=== PATIENT | female | born 1955 | race Caucasian/White ===

== ENCOUNTER → 2016-10-25 | Outpatient (CLI) | payer OTHER | END | disposition home or self-care (01) | LOC: CFH 09:21 | PROVIDERS: ATTEND Family Medicine | DX: Z12.31 Encounter for screening mammogram for malignant neoplasm of breast (principal) | CPT/HCPCS: G0202 ==

== ENCOUNTER → 2017-10-27 | Outpatient (CLI) | payer BC | END | disposition home or self-care (01) | LOC: CFH 08:09 | PROVIDERS: ATTEND Nurse Practitioner Family | DX: Z12.31 Encounter for screening mammogram for malignant neoplasm of breast (principal) | CPT/HCPCS: 77067 ==

== ENCOUNTER → 2019-06-22 | Outpatient (CLI) | payer MEDICARE ==
[~2019-06-22] MED LIST: AZEL137S4 NAS; BIFI4CAP PO; CBD Oil PO; CETI-158 PO; COLE1TAB2 PO; IPRA15SP NS; MONT10TA6 PO; MULT1TAB60 PO; SULI200T2 PO; lansoprazole PO; tylenol PO
[2019-06-22 14:32] LABS: ANION GAP 4 mmol/L (5-15); CHLORIDE 111 mmol/L (98-107); INTERNATIONAL NORMALIZED RATIO 0.94 (0.93-1.1); PROTHROMBIN TIME 9.9 Seconds (9.6-11.5)
[2019-06-22 14:34] LABS: CREATININE 0.71 mg/dL (0.55-1.02)
[2019-06-22 15:01] LABS: BASOPHILS # (AUTO) 0.02 x10^3/uL (0-0.1); BASOPHILS % (AUTO) 0 % (0-1); EOSINOPHILS # (AUTO) 0.13 x10^3/uL (0-0.4); EOSINOPHILS % (AUTO) 2 % (1-7); LYMPHOCYTES # (AUTO) 2.08 x10^3/uL (1-3.4); LYMPHOCYTES % (AUTO) 30 % (22-44); MD NO; MEAN CORPUSCULAR HEMOGLOBIN 33.4 pg (27.0-34.8); MEAN CORPUSCULAR HGB CONC 33.3 g/dL (32.4-35.8); MEAN CORPUSCULAR VOLUME 100.2 fL (80-100); MEAN PLATELET VOLUME 8.2 fL (7.4-10.4); MONOCYTES # (AUTO) 0.51 x10^3/uL (0.2-0.8); MONOCYTES % (AUTO) 7 % (2-9); NEUTROPHILS % (AUTO) 61 % (42-75); PLATELET COUNT 352 x10^3/uL (130-400); RED BLOOD COUNT 4.31 x10^6/uL (3.82-5.3); RED CELL DISTRIBUTION WIDTH 13.4 % (9.6-15.2)
[2019-06-22 15:01] LABS: MICROSCOPIC NOT IND
[2019-06-22 15:59] LABS: CULTURE INDICATED? NO
== END | disposition home or self-care (01) ==
LOC: STAR 12:58
PROVIDERS: ATTEND Neurological Surgery
DX: Z01.818 Encounter for other preprocedural examination (principal); M48.07 Spinal stenosis, lumbosacral region; M51.37 Other intervertebral disc degeneration, lumbosacral region; M41.86 Other forms of scoliosis, lumbar region; Z88.2 Allergy status to sulfonamides
CPT/HCPCS: 36415; 71046; 72131; 80048; 81003; 85025; 85610; 85730; 93005

== ENCOUNTER 2019-07-03 11:25 | Inpatient (IN) | payer MEDICARE ==
[~2019-07-03] VITALS: Ht 170.2 cm; Wt 74.3 kg
[~2019-07-03 11:25] MED LIST changes: +BACITRACIN 50,000 UNIT ONE; +BUPIVACAINE/PF 0.5% ONE; +EPINEPHRINE 1 MG/ML, 1ML ONE; +THROMBIN (RECOMBINANT) 5,000 UNIT VIAL TP ONE; +VANCOMYCIN 1,000 MG ONE
[2019-07-03] MEDS ORDERED: LACTATED RINGERS 1,000 ML IV SCH (12:11)
[2019-07-03] MEDS ORDERED: ACETAMINOPHEN 500 MG TABLET ONE (12:27)
[2019-07-03] MEDS ORDERED: GABAPENTIN 300 MG CAPSULE ONE (12:28)
[2019-07-03] MEDS ORDERED: LIDOCAINE-MPF 1%, 2ML INFIL ONE (12:30)
[2019-07-03] MEDS ORDERED: ACETAMINOPHEN 500 MG TABLET PO ONE (12:30)
[2019-07-03] MEDS ORDERED: GABAPENTIN 300 MG CAPSULE PO ONE (12:30)
[2019-07-03] MEDS ORDERED: MIDAZOLAM 1 MG/ML, 2ML ONE (12:49)
[2019-07-03] MEDS ORDERED: FENTANYL PF 250 MCG/5ML ONE ×2 (12:49→16:41)
[2019-07-03] MEDS ORDERED: SUCCINYLCHOLINE 20 MG/ML, 10ML ONE (12:53)
[2019-07-03] MEDS ORDERED: NEOSTIGMINE 1 MG/ML, 10ML ONE (12:53)
[2019-07-03] MEDS ORDERED: ROCURONIUM 10MG/ML,5ML ONE (12:53)
[2019-07-03] MEDS ORDERED: PROPOFOL 10 MG/ML, 20ML ONE (12:53)
[2019-07-03] MEDS ORDERED: GLYCOPYRROLATE 0.2MG/1ML, 5ML ONE (12:53)
[2019-07-03] MEDS ORDERED: ONDANSETRON 2MG/ML, 2ML ONE (12:53)
[2019-07-03] MEDS ORDERED: DEXAMETHASONE 4 MG/ML, 1ML ONE (12:53)
[2019-07-03] MEDS ORDERED: CEFAZOLIN 1,000 MG ONE (12:53)
[2019-07-03] MEDS ORDERED: SCOPOLAMINE PATCH, 1.5MG PATCH.TD72 TD ONE ×2 (13:14)
[2019-07-03] MEDS ORDERED: PROPOFOL 10 MG/ML, 50ML ONE (14:04)
[2019-07-03] MEDS ORDERED: MEPERIDINE/PF 25MG/0.5ML IVPush PRN (14:30)
[2019-07-03] MEDS ORDERED: LABETALOL 5MG/ML, 20ML IV PRN (14:30)
[2019-07-03] MEDS ORDERED: KETOROLAC 30 MG/1 ML IV PRN ×2 (14:30→19:00)
[2019-07-03] MEDS ORDERED: DIAZEPAM 5 MG/ML, 2ML IVPush PRN (14:30)
[2019-07-03] MEDS ORDERED: OXYcodone 5 MG/5 ML ORAL.SOL UDC PO PRN (14:30)
[2019-07-03] MEDS ORDERED: ACETAMINOPHEN 325 MG TABLET PO PRN ×2 (14:30→19:00)
[2019-07-03] MEDS ORDERED: ALBUTEROL SULFATE 2.5 MG/3 ML NPPB PRN (14:30)
[2019-07-03] MEDS ORDERED: FENTANYL PF 100 MCG/2ML IV PRN (14:30)
[2019-07-03] MEDS ORDERED: hydrALAzine 20 MG/ML, 1ML IV PRN (14:30)
[2019-07-03] MEDS ORDERED: PROMETHAZINE 25 MG/ML, 1ML IV PRN (14:30)
[2019-07-03] MEDS: HYDROmorphone 2 MG/ML, 1ML IVPush PRN ×4 (17:10→17:50)
[2019-07-03] MEDS ORDERED: OXYcodone 5 MG/5 ML ORAL.SOL UDC ONE (17:11)
[2019-07-03] MEDS ORDERED: HYDROmorphone 2 MG/ML, 1ML ONE (17:11)
[2019-07-03] MEDS ORDERED: METHOCARBAMOL 1,000 MG in DEXTROSE 5% 100 ML IV ONE (18:00)
[2019-07-03] MEDS ORDERED: KETOROLAC 30 MG/1 ML ONE (18:54)
[2019-07-03] MEDS ORDERED: ACETAMINOPHEN 650 MG/20.3 ML UDC ONE (18:54)
[2019-07-03] MEDS ORDERED: PHARMACY MAY ADJ FOR RENAL FX MC PRN (19:30)
[2019-07-03 19:45] VITALS: BP 120/74
[2019-07-03] MEDS ORDERED: DIPHENHYDRAMINE 50 MG/ML, 1ML IVPush PRN (20:00)
[2019-07-03] MEDS ORDERED: HYDROmorphone 2 MG/ML, 1ML IVPush PRN (20:00)
[2019-07-03] MEDS ORDERED: ONDANSETRON 2MG/ML, 2ML IV PRN (20:00)
[2019-07-03] MEDS ORDERED: LORazepam 1MG TABLET PO PRN (20:00)
[2019-07-03] MEDS ORDERED: HYDROcodone/APAP 5/325 TABLET PO PRN (20:00)
[2019-07-03] MEDS ORDERED: BISACODYL 10 MG SUPP PR PRN (20:00)
[2019-07-03] MEDS ORDERED: MAGNESIUM HYDROXIDE 8%, 30ML UDC PO PRN (20:00)
[2019-07-03] MEDS ORDERED: PROMETHAZINE 25 MG/ML, 1ML IM PRN (20:00)
[2019-07-03] MEDS ORDERED: COLESTIPOL 1 GM TABLET PO PRN (20:00)
[2019-07-03] MEDS ORDERED: ZOLPIDEM 5MG TABLET PO PRN (21:00)
[2019-07-03] MEDS: D5%-0.9% NACL+KCL 20MEQ 1,000 ML IV SCH (22:03)
[2019-07-03] MEDS: CEFAZOLIN PMX 1GM/50ML 50 ML IVPB SCH (22:17)
[2019-07-03 23:56] VITALS: BP 92/59
[2019-07-04] MEDS: METHOCARBAMOL 750 MG TABLET PO SCH ×3 (01:37→17:47)
[2019-07-04] MEDS: HYDROcodone/APAP 10/325 MG TABLET PO PRN ×6 (01:37→22:43)
[2019-07-04 03:54] VITALS: BP 85/59
[2019-07-04 05:31] LABS: BASOPHILS # (AUTO) 0.02 x10^3/uL (0-0.1); BASOPHILS % (AUTO) 0 % (0-1); EOSINOPHILS # (AUTO) 0.01 x10^3/uL (0-0.4); EOSINOPHILS % (AUTO) 0 % (1-7); LYMPHOCYTES # (AUTO) 1.45 x10^3/uL (1-3.4); LYMPHOCYTES % (AUTO) 16 % (22-44); MD NO; MEAN CORPUSCULAR HEMOGLOBIN 33.1 pg (27.0-34.8); MEAN CORPUSCULAR VOLUME 100.4 fL (80-100); MEAN PLATELET VOLUME 8.2 fL (7.4-10.4); MONOCYTES # (AUTO) 0.63 x10^3/uL (0.2-0.8); MONOCYTES % (AUTO) 7 % (2-9); NEUTROPHILS # (AUTO) 7.14 x10^3/uL (1.8-6.8); NEUTROPHILS % (AUTO) 77 % (42-75); PLATELET COUNT 251 x10^3/uL (130-400); RED BLOOD COUNT 3.55 x10^6/uL (3.82-5.3); RED CELL DISTRIBUTION WIDTH 13.5 % (9.6-15.2)
[2019-07-04 05:32] LABS: ANION GAP 8 mmol/L (5-15); CALCIUM 8.3 mg/dL (8.5-10.1); CHLORIDE 109 mmol/L (98-107); CREATININE 0.73 mg/dL (0.55-1.02)
[2019-07-04] MEDS: CEFAZOLIN PMX 1GM/50ML 50 ML IVPB SCH (05:57)
[2019-07-04] MEDS: PANTOPRAZOLE 20MG TABLET PO SCH ×2 (05:58→16:10)
[2019-07-04] MEDS: ENOXAPARIN 40 MG/0.4 ML SQ SCH (06:09)
[2019-07-04 07:25] VITALS: BP 87/51
[2019-07-04] MEDS: D5%-0.9% NACL+KCL 20MEQ 1,000 ML IV SCH ×2 (08:00→17:47)
[2019-07-04] MEDS: AZELASTINE HCL NAS SCH (09:00)
[2019-07-04] MEDS: IPRATROPIUM NASAL 0.03%, 30ML NAS SCH (09:00)
[2019-07-04] MEDS: MONTELUKAST 10 MG TABLET PO SCH (09:24)
[2019-07-04] MEDS: MULTIVITAMIN 1 TABLET PO SCH (09:25)
[2019-07-04] MEDS: SENNA/DOCUSATE TABLET PO SCH (09:27)
[2019-07-04] MEDS: FLORASTOR 250 MG CAPSULE PO SCH (09:27)
[2019-07-04] MEDS: DEXAMETHASONE 4 MG/ML, 1ML IVPush SCH ×3 (09:28→20:48)
[2019-07-04 12:43] VITALS: BP 93/63
[2019-07-04 18:34] VITALS: BP 101/67
[2019-07-04] MEDS: CETIRIZINE 10 MG TABLET PO SCH (20:50)
[2019-07-05 01:15] VITALS: BP 103/66
[2019-07-05] MEDS: METHOCARBAMOL 750 MG TABLET PO SCH ×2 (02:59→10:31)
[2019-07-05] MEDS: HYDROcodone/APAP 10/325 MG TABLET PO PRN ×2 (03:00→06:47)
[2019-07-05] MEDS: DEXAMETHASONE 4 MG/ML, 1ML IVPush SCH ×2 (03:00→09:19)
[2019-07-05] MEDS: D5%-0.9% NACL+KCL 20MEQ 1,000 ML IV SCH (04:00)
[2019-07-05 05:14] LABS: BASOPHILS # (AUTO) 0.02 x10^3/uL (0-0.1); BASOPHILS % (AUTO) 0 % (0-1); EOSINOPHILS % (AUTO) 0 % (1-7); LYMPHOCYTES # (AUTO) 1.06 x10^3/uL (1-3.4); LYMPHOCYTES % (AUTO) 13 % (22-44); MD NO; MEAN CORPUSCULAR HEMOGLOBIN 33.8 pg (27.0-34.8); MEAN CORPUSCULAR HGB CONC 33.2 g/dL (32.4-35.8); MEAN CORPUSCULAR VOLUME 101.9 fL (80-100); MEAN PLATELET VOLUME 8.4 fL (7.4-10.4); MONOCYTES # (AUTO) 0.26 x10^3/uL (0.2-0.8); MONOCYTES % (AUTO) 3 % (2-9); NEUTROPHILS # (AUTO) 6.66 x10^3/uL (1.8-6.8); NEUTROPHILS % (AUTO) 83 % (42-75); PLATELET COUNT 229 x10^3/uL (130-400); RED BLOOD COUNT 3.39 x10^6/uL (3.82-5.3); RED CELL DISTRIBUTION WIDTH 13.1 % (9.6-15.2)
[2019-07-05 05:21] LABS: ANION GAP 5 mmol/L (5-15); CALCIUM 8.6 mg/dL (8.5-10.1); CHLORIDE 111 mmol/L (98-107)
[2019-07-05] MEDS: ENOXAPARIN 40 MG/0.4 ML SQ SCH (06:47)
[2019-07-05] MEDS: PANTOPRAZOLE 20MG TABLET PO SCH (06:47)
[2019-07-05 07:05] VITALS: BP 109/70
[2019-07-05] MEDS: IPRATROPIUM NASAL 0.03%, 30ML NAS SCH (09:00)
[2019-07-05] MEDS: MULTIVITAMIN 1 TABLET PO SCH (09:00)
[2019-07-05] MEDS: AZELASTINE HCL NAS SCH (09:00)
[2019-07-05] MEDS: FLORASTOR 250 MG CAPSULE PO SCH (09:00)
[2019-07-05] MEDS: SENNA/DOCUSATE TABLET PO SCH (09:20)
[2019-07-05] MEDS: MONTELUKAST 10 MG TABLET PO SCH (09:20)
[2019-07-05] MEDS: CETIRIZINE 10 MG TABLET PO SCH (09:20)
== END 2019-07-05 11:54 | disposition home or self-care (01) | DRG 454 ==
LOC: ORIP 12:01 → 4NE 19:13 → DCLOUNGE 07-05 11:48
PROVIDERS: ADMIT Neurological Surgery; ATTEND Neurological Surgery
PROC: 0SG00AJ Fusion of Lumbar Vertebral Joint with Interbody Fusion Device, Posterior Approach, Anterior Column, Open Approach (ICD-10-PCS; 2019-07-03)
PROC: 8E0W0CZ Robotic Assisted Procedure of Trunk Region, Open Approach (ICD-10-PCS; 2019-07-03)
PROC: 01NB0ZZ Release Lumbar Nerve, Open Approach (ICD-10-PCS; 2019-07-03)
PROC: 0SB20ZZ Excision of Lumbar Vertebral Disc, Open Approach (ICD-10-PCS; 2019-07-03)
PROC: 0SG0071 Fusion of Lumbar Vertebral Joint with Autologous Tissue Substitute, Posterior Approach, Posterior Column, Open Approach (ICD-10-PCS; principal; 2019-07-03 14:30)
DX: M43.16 Spondylolisthesis, lumbar region (principal); G99.2 Myelopathy in diseases classified elsewhere; M48.062 Spinal stenosis, lumbar region with neurogenic claudication; M54.16 Radiculopathy, lumbar region; Z88.2 Allergy status to sulfonamides; Z88.8 Allergy status to other drugs, medicaments and biological substances
CPT/HCPCS: 36415; 72100; 72131; 80048; 85025; C1713; C1729; G0378; J0171; J0690; J1100; J1170; J1650; J1885; J2250; J2405; J2704; J2710; J3010; J3370; A4648; C1763; J0330; J2800; J3480; J7120

== ENCOUNTER 2019-07-09 07:13 | Emergency (ER) | payer MEDICARE ==
[~2019-07-09] VITALS: Ht 170.2 cm; Wt 74.0 kg
[~2019-07-09 07:13] MED LIST changes: -BACITRACIN 50,000 UNIT ONE; -BUPIVACAINE/PF 0.5% ONE; -EPINEPHRINE 1 MG/ML, 1ML ONE; -THROMBIN (RECOMBINANT) 5,000 UNIT VIAL TP ONE; -VANCOMYCIN 1,000 MG ONE
[2019-07-09] MEDS ORDERED: HYDR-3237 PO (07:39)
[2019-07-09] MEDS ORDERED: METH4TAB6 PO (07:41)
[2019-07-09] MEDS ORDERED: METH750T2 PO (07:41)
--- NOTE | 2019-07-09 07:46 | NUR ---
SHOOTING PAIN DOWN LEFT LEG PAIN SINCE TUESDAY. and right foot numbness since tuesday (immediately noticed after surgery) BACK FUSION SURGERY TUESDAY Took 20mg on norco/methylpred/robaxin with minimal improvement in pain No bowel/bladder involvment
[2019-07-09] MEDS ORDERED: SODIUM CHLORIDE FLUSH 10ML SYR IVF ONE (08:00)
[2019-07-09] MEDS ORDERED: HYDROmorphone 2 MG/ML, 1ML IVPush PRN (08:00)
[2019-07-09] MEDS ORDERED: HYDROmorphone 1 MG/ML, 1ML VIAL ONE (08:04)
[2019-07-09] MEDS ORDERED: ONDANSETRON 2MG/ML, 2ML ONE (08:04)
--- NOTE | 2019-07-09 08:17 | NUR ---
Piv placed from which labs were drawn and sent Patient then medicated per emar for back/left leg pain rated at 6/10 MRI made aware that piv in place
[2019-07-09 08:34] LABS: BASOPHILS % (AUTO) 0 % (0-1); EOSINOPHILS % (AUTO) 0 % (1-7); LYMPHOCYTES # (AUTO) 1.29 x10^3/uL (1-3.4); LYMPHOCYTES % (AUTO) 12 % (22-44); MD NO; MEAN CORPUSCULAR HEMOGLOBIN 33.7 pg (27.0-34.8); MEAN CORPUSCULAR HGB CONC 33.5 g/dL (32.4-35.8); MEAN CORPUSCULAR VOLUME 100.4 fL (80-100); MEAN PLATELET VOLUME 7.9 fL (7.4-10.4); MONOCYTES # (AUTO) 0.36 x10^3/uL (0.2-0.8); MONOCYTES % (AUTO) 3 % (2-9); NEUTROPHILS # (AUTO) 9.57 x10^3/uL (1.8-6.8); NEUTROPHILS % (AUTO) 85 % (42-75); PLATELET COUNT 359 x10^3/uL (130-400); RED BLOOD COUNT 3.91 x10^6/uL (3.82-5.3); RED CELL DISTRIBUTION WIDTH 12.4 % (9.6-15.2)
--- NOTE | 2019-07-09 08:37 | NUR ---
pain improved to 0/10 To mri
[2019-07-09 08:40] LABS: ALBUMIN 3.4 g/dL (3.4-5.0); ANION GAP 5 mmol/L (5-15); CALCIUM 9.3 mg/dL (8.5-10.1); CHLORIDE 107 mmol/L (98-107); CREATININE 0.63 mg/dL (0.55-1.02)
[2019-07-09 08:43] LABS: MICROSCOPIC NOT IND
[2019-07-09 08:47] LABS: CULTURE INDICATED? NO
[2019-07-09] MEDS ORDERED: GADOTERATE 10 MMOL/20 ML SYR ONE (08:55)
[2019-07-09 09:51] VITALS: BP 124/77
--- NOTE | 2019-07-09 09:52 | NUR ---
With reassessment continues to report complete resolution of symptoms (however, right foot remains numb) Vital updated (wnl) Updated on estimated poc
--- NOTE | 2019-07-09 10:08 | NUR ---
small amount of serous drainage (clear NON fould smelling fluid draining from inferior portion on incision). Cleansed with sterile saline/gauze Sterile 4x4 placed over site as bandange
[2019-07-09] MEDS ORDERED: GABAPENTIN 300 MG CAPSULE PO ONE (10:30)
[2019-07-09] MEDS ORDERED: GABAPENTIN 300 MG CAPSULE ONE (10:30)
--- NOTE | 2019-07-09 10:34 | NUR ---
medicated per emar
--- NOTE | 2019-07-09 11:20 | NUR ---
card writer hand comfortable discharging home despite recent narcotics as road test unremarkable and with helpful/knowledgable spouse
== END 2019-07-09 11:20 | disposition home or self-care (01) ==
LOC: ED 09:27
DX: M54.42 Lumbago with sciatica, left side (principal); Z72.89 Other problems related to lifestyle
CPT/HCPCS: 36415; 72158; 80048; 81003; 82040; 85025; 96374; 99284; A9575; J1170